=== PATIENT | female | born 1975 | race Caucasian/White ===

== ENCOUNTER 2017-06-22 16:24 | Emergency (ER) | payer OTHER ==
[~2017-06-22] VITALS: Ht 160 cm; Wt 70.3 kg
[~2017-06-22 16:24] MED LIST: EXPECTA PRENAT1 EACH
[2017-06-22] MEDS ORDERED: HINGED KNEE BRACE (16:57)
[2017-06-22] MEDS ORDERED: Norco 5-325 Ta1 EACH PO (17:18)
== END 2017-06-22 17:42 | disposition home or self-care (01) ==
LOC: ER 16:24
DX: M25.561 Pain in right knee (principal); R60.0 Localized edema; F17.200 Nicotine dependence, unspecified, uncomplicated
CPT/HCPCS: 73562-RT; 99283

== ENCOUNTER → 2017-07-25 | Outpatient (CLI) | payer OTHER ==
[~2017-07-25] MED LIST changes: +HINGED KNEE BRACE; +Norco 5-325 Ta1 EACH PO
[2017-07-25 13:59] LABS: Candida species (DNA Probe) Negative (NEGATIVE); G. vaginalis (DNA Probe) Negative (NEGATIVE); T. vaginalis (DNA Probe) Negative (NEGATIVE)
[2017-07-26 11:26] LABS: HPV Genotype 16 Not Detected (NOTDET); HPV Genotype 18 Not Detected (NOTDET)
[2017-08-11 08:25] LABS: HPV High Risk Other Not Detected (NOTDET)
[2017-08-12 06:46] LABS: Source Cervical
== END ==
LOC: LAB 11:40 → LAB SHORT 11:40
PROVIDERS: Nurse Practitioner Family
DX: Z01.419 Encounter for gynecological examination (general) (routine) without abnormal findings (principal); N89.8 Other specified noninflammatory disorders of vagina
CPT/HCPCS: 87480; 87510; 87624; 87660; G0145

== ENCOUNTER 2023-11-06 06:38 | Day surgery (SDC) | payer OTHER ==
[2023-11-06] VITALS (15 sets, daily range): BP systolic 96–131; BP diastolic 48–84
[~2023-11-06] VITALS: Ht 157.5 cm; Wt 80.3 kg
[~2023-11-06 06:38] MED LIST changes: +Lactated Ringer's 1,000 ML IV SCH
[2023-11-06] MEDS ORDERED: propofoL 40 ML IV ONE (06:58)
--- NOTE | 2023-11-06 07:07 | NUR ---
Ambulatory in Day Surgery.Pt reports 5/10 right headache. She states that she thinks she is "dehydrated." History, Chart, Medications and Allergies reviewed before start of procedure.Lungs clear T/O to Auscultation. Patient states colon prep results clear. Patient confirms NPO status and agrees with scheduled surgery. Patient States Post-Procedure ride home has been arranged.
--- NOTE | 2023-11-06 07:34 | NUR ---
11/06/23 0734 Dustin Warren HISTORY, CHART, MEDICATIONS AND ALLERGIES REVIEWED BEFORE START OF PROCEDURE. PATIENT CONFIRMS NPO STATUS AND AGREES WITH SCHEDULED PROCEDURE. 3-LEAD EKG REVIEWED WITH PHYSICIAN PRIOR TO START OF PROCEDURE. MONITOR INTACT WITH CONTINUOUS PULSE OXIMETRY,CAPNOGRAPHY, 3-LEAD EKG, INTERMITTENT BP. SUPPLEMENTAL O2 TO BE TITRATED THROUGHOUT PROCEDURE TO MAINTAIN O2 SATURATION ABOVE 90%. PATIENT DETERMINED TO BE ASA APPROPRIATE FOR PROPOFOL SEDATION PRIOR TO START OF PROCEDURE BY DR. HAYDEN.
--- NOTE | 2023-11-06 08:05 | NUR ---
REPORT RECEIVED FROM JOHNNY REYES. VSS. PT ON RA. PT [id number]&[id number]. PT ABLE TO REPOSITION SELF IN BED. PT REQUESTING PO FLUIDS AND TOLERATING THEM WELL. PT DENIES PAIN, NAUSEA OR OTHER DISCOMFORTS.
--- NOTE | 2023-11-06 08:32 | NUR ---
0820 Patient up to Ambulate AND DRESS independently. Gait steady. VSS AND CONSISTENT WITH PT BASELINE. PT HAS NO COMPLAINTS AND VERBALIZES READINESS TO GO HOME. Discharge instructions reviewed with patient. Patient verbalizes understanding. Copy given to patient to take home. Patient States Post-Procedure ride home has been arranged. WAITING FOR RIDE.
--- NOTE | 2023-11-06 08:34 | NUR ---
0830 Discharged via wheelchair to private car for ride home. PT BELONGINGS RETURNED TO PT.
== END 2023-11-06 08:30 | disposition home or self-care (01) ==
LOC: ORSCMMR 06:38 → ORD 07:30 → ORSCMMR 07:30
PROVIDERS: Internal Medicine Gastroenterology
PROC: 0DBM8ZX Excision of Descending Colon, Via Natural or Artificial Opening Endoscopic, Diagnostic (ICD-10-PCS; principal; 2023-11-06 07:30)
PROC: 0DBN8ZX Excision of Sigmoid Colon, Via Natural or Artificial Opening Endoscopic, Diagnostic (ICD-10-PCS; principal; 2023-11-06 07:30)
PROC: 0DBK8ZX Excision of Ascending Colon, Via Natural or Artificial Opening Endoscopic, Diagnostic (ICD-10-PCS; principal; 2023-11-06 07:30)
DX: Z12.11 Encounter for screening for malignant neoplasm of colon (principal); D12.2 Benign neoplasm of ascending colon; D12.4 Benign neoplasm of descending colon; K63.5 Polyp of colon; Z80.0 Family history of malignant neoplasm of digestive organs; Z68.34 Body mass index [BMI] 34.0-34.9, adult; F17.210 Nicotine dependence, cigarettes, uncomplicated
CPT/HCPCS: 88305; J2704; J7120